=== PATIENT | female | born 1950 | race Caucasian/White ===

== ENCOUNTER 2019-07-16 06:43 | Day surgery (SDC) | payer MEDICARE, OTHER ==
[2019-07-16] MEDS ORDERED: Propofol 200 MG/20 ML SDV IV ONE (06:44)
[2019-07-16] MEDS ORDERED: Sodium Chloride 0.9% 10 ML Syringe FLUSH PRN (06:45)
[2019-07-16] MEDS ORDERED: Lactated Ringers 1,000 ML IV SCH (06:45)
--- NOTE | 2019-07-16 08:23 | PCM.OPNOTE ---
- General Post-Op/Procedure Note Date of Surgery/Procedure: 07/16/19 Operative Procedure(s): c scope Findings: sigmoid diverticulosis Pre Op Diagnosis: personal hx of colon polyps Post-Op Diagnosis: sigmoid diverticulosis Anesthesia Technique: MAC Primary Surgeon: Alfonzo Russell Anesthesia Provider: Tabitha Oleary Pathology: none Complications: None Condition: Good Free Text/Narrative:: see dictation
[2019-07-16 09:32] VITALS: BP 106/53; PULSE 74
--- NOTE | 2019-07-16 13:48 | OR ---
DATE OF OPERATION: 07/16/2019 SURGEON: Alfonzo Russell MD PROCEDURE PERFORMED: C-scope. PREOPERATIVE DIAGNOSIS: Personal history of colon polyps. POSTOPERATIVE DIAGNOSIS: Diverticulosis of the colon. INDICATIONS FOR PROCEDURE: This 69-year-old white female presents for a 5-year followup scope, had the above-mentioned findings. DESCRIPTION OF OPERATION: After an excellent IV sedation was administered, digital rectal exam was performed. No marked abnormality was noted. Flexible colonoscope was inserted and advanced to the cecum. Prep was excellent. Following findings were noted. Ascending colon, unremarkable. Transverse colon, unremarkable. Descending colon, unremarkable. Sigmoid, scattered diverticula. Rectum and anus, unremarkable. Colon was deflated. The scope was removed. The patient tolerated the procedure well, was taken to Recovery in good condition. RECOMMENDATIONS: Repeat colonoscopy in 10 years. /[id number] /MODL
== END 2019-07-16 10:08 | disposition home or self-care (01) ==
LOC: FB.SDS 06:43
PROVIDERS: ATTEND Surgery
DX: Z12.11 Encounter for screening for malignant neoplasm of colon (principal); K57.30 Diverticulosis of large intestine without perforation or abscess without bleeding; N18.3 Chronic kidney disease, stage 3 (moderate); E78.2 Mixed hyperlipidemia; E66.9 Obesity, unspecified; G43.709 Chronic migraine without aura, not intractable, without status migrainosus; Z90.49 Acquired absence of other specified parts of digestive tract; Z68.33 Body mass index [BMI] 33.0-33.9, adult; Z86.010 Personal history of colon polyps; Z79.1 Long term (current) use of non-steroidal anti-inflammatories (NSAID); Z79.82 Long term (current) use of aspirin; Z88.4 Allergy status to anesthetic agent; Z88.5 Allergy status to narcotic agent; Z91.013 Allergy to seafood; Z88.2 Allergy status to sulfonamides; Z88.8 Allergy status to other drugs, medicaments and biological substances; Z91.02 Food additives allergy status
CPT/HCPCS: 00812-QZ; J2704; J7120